=== PATIENT | male | born 1970 | race Caucasian/White ===

== ENCOUNTER 2023-05-03 19:05 | Emergency (ER) | payer OTHER ==
[2023-05-03] MEDS ORDERED: Lidocaine 1% (PF) 30 ML VIAL ONE (19:30)
[2023-05-03] MEDS ORDERED: Boostrix 0.5 ML (Tdap) VIAL (>/=7 yrs of age) ONE (19:46)
[2023-05-03] MEDS ORDERED: Ibuprofen 200 MG TAB ONE (20:07)
[2023-05-03] MEDS ORDERED: Triple Antibiotic Oint 1 GM Packet ONE (20:08)
== END 2023-05-03 21:05 ==
LOC: NAV ERS 19:05
DX: S01.01XA Laceration without foreign body of scalp, initial encounter (principal); Z23 Encounter for immunization; W01.0XXA Fall on same level from slipping, tripping and stumbling without subsequent striking against object, initial encounter; Y93.67 Activity, basketball
CPT/HCPCS: 12013; 90715; J2001